=== PATIENT | female | born 1980 | race African-American/Black ===

== ENCOUNTER 2016-09-14 16:33 | Emergency (ER) | payer MEDICAID ==
[~2016-09-14] VITALS: Ht 170.2 cm; Wt 98.4 kg
[~2016-09-14 16:33] MED LIST: INS7030 SC
[2016-09-14 20:00] VITALS: BP 138/97
== END 2016-09-14 20:00 | disposition home or self-care (01) ==
LOC: ED 16:33
DX: R51 Headache (principal); R11.2 Nausea with vomiting, unspecified; H53.149 Visual discomfort, unspecified; E11.9 Type 2 diabetes mellitus without complications; E66.9 Obesity, unspecified

== ENCOUNTER 2018-01-22 10:25 | Emergency (ER) | payer MEDICAID ==
[~2018-01-22] VITALS: Ht 170.2 cm; Wt 93.0 kg
[2018-01-22 10:32] VITALS: Ht 170.2 cm; Wt 93.0 kg
[2018-01-22 12:17] VITALS: BP 125/85
== END 2018-01-22 11:50 | disposition home or self-care (01) ==
LOC: ED 10:25
DX: J02.9 Acute pharyngitis, unspecified (principal)

== ENCOUNTER 2018-05-17 16:16 | Emergency (ER) | payer MEDICAID ==
[~2018-05-17] VITALS: Ht 170.2 cm; Wt 85.3 kg
[2018-05-17 17:30] LABS: BASOPHIL % 0.5 % (0-2); PLATELET COUNT 254 x10^3mcL (130-400); RED CELL DISTRIBUTION WIDTH 13.6 % (11.5-14.5)
[2018-05-17 17:45] LABS: ALBUMIN 3.7 g/dL (3.4-5.0); ALKALINE PHOSPHATASE 69 U/L (46-116); ALT/SGPT 28 U/L (14-59); AST/SGOT 16 U/L (15-37); BILIRUBIN TOTAL 0.5 mg/dL (0.20-1.00); CALCIUM 8.7 mg/dL (8.5-10.1); CARBON DIOXIDE 26.5 mmol/L (21-32); CHLORIDE SERUM 96 mmol/L (98-107); CHOLESTEROL 156 mg/dL (<200); GFR1 > 60 mL/min; HDL CHOLESTEROL 39 mg/dL (40-60); POTASSIUM SERUM 3.6 mmol/L (3.5-5.1); SODIUM SERUM 132 mmol/L (136-145); TOTAL PROTEIN, SERUM 7.7 g/dL (6.4-8.2); TRIGLYCERIDES 53 mg/dL (<150)
[2018-05-17 17:48] LABS: GLUCOSE SERUM 520 mg/dL (74-106)
[2018-05-17 20:29] VITALS: BP 132/93
== END 2018-05-17 20:30 | disposition home or self-care (01) ==
LOC: ED 16:16
PROVIDERS: Specialist
DX: N92.0 Excessive and frequent menstruation with regular cycle (principal); E11.65 Type 2 diabetes mellitus with hyperglycemia
CPT/HCPCS: 36600; 82962; J1815; J7030; Q0092

== ENCOUNTER 2018-07-05 18:33 | Emergency (ER) | payer MEDICAID ==
[~2018-07-05] VITALS: Ht 167.6 cm; Wt 84.8 kg
[2018-07-05 18:36] VITALS: Ht 167.6 cm; Wt 84.8 kg
[2018-07-05 19:40] VITALS: BP 142/99
== END 2018-07-05 19:40 | disposition home or self-care (01) ==
LOC: ED 18:33
DX: F41.9 Anxiety disorder, unspecified (principal); E11.9 Type 2 diabetes mellitus without complications

== ENCOUNTER 2019-06-08 12:07 | Emergency (ER) | payer MEDICAID ==
[~2019-06-08] VITALS: Ht 167.6 cm; Wt 85.7 kg
[2019-06-08 12:16] VITALS: Ht 167.6 cm; Wt 85.7 kg
[2019-06-08 13:40] VITALS: BP 122/75
== END 2019-06-08 13:40 | disposition home or self-care (01) ==
LOC: ED 12:07
DX: L02.11 Cutaneous abscess of neck (principal); E11.9 Type 2 diabetes mellitus without complications

== ENCOUNTER 2019-07-20 17:04 | Emergency (ER) | payer MEDICAID ==
[~2019-07-20] VITALS: Ht 170.2 cm; Wt 83.9 kg
[2019-07-20 17:28] VITALS: Ht 170.2 cm; Wt 83.9 kg
[2019-07-20 18:09] LABS: BASOPHIL % 0.7 % (0-2); PLATELET COUNT 272 x10^3mcL (130-400)
[2019-07-20 18:10] LABS: RED CELL DISTRIBUTION WIDTH 14.7 % (11.5-14.5)
[2019-07-20 18:19] LABS: CALCIUM 8.4 mg/dL (8.5-10.1); CARBON DIOXIDE 26.2 mmol/L (21-32); CHLORIDE SERUM 99 mmol/L (98-107); CREATININE SERUM 0.7 mg/dL (0.6-1.0); GFR1 > 60 mL/min; GLUCOSE SERUM 398 mg/dL (74-106); POTASSIUM SERUM 3.9 mmol/L (3.5-5.1); SODIUM SERUM 136 mmol/L (136-145)
[2019-07-20 18:23] LABS: ALBUMIN 3.6 g/dL (3.4-5.0); ALKALINE PHOSPHATASE 100 U/L (46-116); ALT/SGPT 26 U/L (14-59); AST/SGOT 11 U/L (15-37); BILIRUBIN TOTAL 0.2 mg/dL (0.20-1.00); TOTAL PROTEIN, SERUM 7.6 g/dL (6.4-8.2)
[2019-07-20 22:20] VITALS: BP 148/88
== END 2019-07-20 22:20 | disposition home or self-care (01) ==
LOC: ED 17:04
PROVIDERS: Emergency Medicine
DX: E11.65 Type 2 diabetes mellitus with hyperglycemia (principal); R10.30 Lower abdominal pain, unspecified; N83.209 Unspecified ovarian cyst, unspecified side; Z98.890 Other specified postprocedural states
CPT/HCPCS: 82962; J1885

== ENCOUNTER 2019-07-31 01:38 | Emergency (ER) | payer MEDICAID ==
[~2019-07-31] VITALS: Ht 170.2 cm; Wt 83.5 kg
[2019-07-31 01:53] VITALS: Ht 170.2 cm; Wt 83.5 kg
[2019-07-31 04:35] VITALS: BP 103/64
[2019-07-31 05:35] LABS: AMPHETAMINE QUAL UR NONE DETECTED (See below)
== END 2019-07-31 04:36 | disposition home or self-care (01) ==
LOC: ED 01:38
PROVIDERS: Emergency Medicine
DX: M25.552 Pain in left hip (principal); R19.7 Diarrhea, unspecified; M54.6 Pain in thoracic spine; E11.9 Type 2 diabetes mellitus without complications; Z98.890 Other specified postprocedural states
CPT/HCPCS: J1885

== ENCOUNTER 2020-05-02 07:20 | Emergency (ER) | payer MEDICAID ==
[~2020-05-02] VITALS: Ht 170.2 cm; Wt 84.8 kg
[2020-05-02 08:30] VITALS: BP 159/96
== END 2020-05-02 08:33 | disposition home or self-care (01) ==
LOC: ED 07:20
DX: S91.332A Puncture wound without foreign body, left foot, initial encounter (principal); Y99.8 Other external cause status; L08.9 Local infection of the skin and subcutaneous tissue, unspecified; E11.9 Type 2 diabetes mellitus without complications; Z98.890 Other specified postprocedural states; W55.01XA Bitten by cat, initial encounter; Y93.89 Activity, other specified; Y92.89 Other specified places as the place of occurrence of the external cause
CPT/HCPCS: 82962; 90715